=== PATIENT | female | born 1975 | race Caucasian/White ===

== ENCOUNTER 2017-12-18 21:53 | Emergency (ER) | payer MEDICAID ==
[~2017-12-18] VITALS: Ht 193 cm; Wt 81.6 kg
[~2017-12-18 21:53] MED LIST: ALPR1TAB2; LEVO25TA9; PROZAC; ZOLP-158
[2017-12-18] MEDS ORDERED: ACTIVATED CHARCOAL 50 GM/240 ML SOL PO ONE (22:15)
[2017-12-18] MEDS ORDERED: SODIUM CHLORIDE 0.9% 1,000 ML IV ONE (22:30)
[2017-12-18 22:45] LABS: Basophils # (auto) 0.1 uL; Basophils % (auto) 1.1 % (0.0-2.0); Eosinophils # (auto) 0.2 uL; Hematocrit 41.8 % (36.0-46.0); Hemoglobin 13.6 g/dL (12.2-16.2); Lymphocytes # (auto) 4.3 uL; Lymphocytes % (auto) 36.4 % (10.0-50.0); Mean Corpuscular Hemoglobin 27.7 pg (28.0-32.0); Mean Corpuscular Hgb Conc. 32.5 g/dL (32.0-36.0); Mean Corpuscular Volume 85.2 fL (80.0-100.0); Monocytes % (auto) 8.4 % (0.0-12.0); Neutrophils # (auto) 6.1 uL; Neutrophils % (auto) 52.1 % (37.0-80.0); Nucleated Red Blood Cells % 0.1 %; Platelet Count (auto) 396 10^3/uL (140-450); Red Cell Distribution Width 14.3 % (11.8-14.3); White Blood Cell 11.7 10^3/uL (4.4-10.8)
[2017-12-18 23:03] LABS: Albumin 3.6 g/dL (3.4-5.0); BUN/Creatinine Ratio 14.5; Calcium 7.9 mg/dL (8.5-10.1); Potassium 3.6 mmol/L (3.5-5.1)
[2017-12-18 23:06] LABS: Bilirubin, Total 0.1 mg/dL (0.2-1.0); Total Protein 8.1 g/dL (6.4-8.2)
[2017-12-18 23:07] LABS: Acetaminophen 34.8 ug/mL (10-30); Salicylate < 1.7 mg/dL (2.8-20.0)
[2017-12-19 01:30] LABS: Urine Bacteria FEW /hpf (None Seen); Urine Blood TRACE /uL (Negative); Urine Mucus FEW (None Seen); Urine Specific Gravity 1.018 (1.001-1.035); Urine WBC 2 /hpf (0 - 5)
[2017-12-19 01:35] LABS: Amphetamine Screen, Urine NEGATIVE (NEGATIVE); Barbiturate Scree,Urine NEGATIVE (NEGATIVE); Benzodiazephine Screen, Urine NEGATIVE (NEGATIVE); Cannabinoid Screen, Urine NEGATIVE (NEGATIVE); Cocaine Screen, Urine NEGATIVE (NEGATIVE); Opiate Scree,Urine POSITIVE (NEGATIVE); Phencyclidine Screen, Urine NEGATIVE (NEGATIVE)
[2017-12-19] MEDS ORDERED: SODIUM CHLORIDE 0.9% 1,000 ML IV ONE ×2 (05:15)
[2017-12-19] MEDS ORDERED: LORazepam 2MG/ML-1ML VIAL IV ONE (05:15)
[2017-12-19] MEDS: LORazepam 2MG/ML-1ML VIAL IM ONE ×2 (05:20→06:05)
[2017-12-19 06:30] LABS: Albumin 3.7 g/dL (3.4-5.0); BUN/Creatinine Ratio 11.4; Calcium 8.1 mg/dL (8.5-10.1); Potassium 3.7 mmol/L (3.5-5.1)
[2017-12-19 06:33] LABS: Bilirubin, Total 0.2 mg/dL (0.2-1.0); Total Protein 8.3 g/dL (6.4-8.2)
[2017-12-19 06:55] LABS: Acetaminophen < 2.0 ug/mL (10-30); Salicylate < 1.7 mg/dL (2.8-20.0)
[2017-12-19 15:58] VITALS: BP 136/83
== END 2017-12-19 10:57 | disposition short-term general hospital (02) ==
LOC: EDBD 21:53 → ER 21:56
DX: F32.9 Major depressive disorder, single episode, unspecified (principal); F41.9 Anxiety disorder, unspecified; F10.120 Alcohol abuse with intoxication, uncomplicated; F19.10 Other psychoactive substance abuse, uncomplicated; Y90.9 Presence of alcohol in blood, level not specified
CPT/HCPCS: 36415; 71045; 80053; 80307; 80320; 80329; 81001; 85025; 93005; 94761; 96372; 99285; J2060; J7030

== ENCOUNTER 2018-12-08 08:01 | Emergency (ER) | payer MEDICAID ==
[~2018-12-08] VITALS: Ht 170.2 cm; Wt 99.8 kg
[2018-12-08 08:16] VITALS: BP 106/76
[2018-12-08] MEDS ORDERED: KETOROLAC TROMETH 60MG/2ML VIAL IM ONE (09:30)
== END 2018-12-08 10:04 | disposition home or self-care (01) ==
LOC: ER 08:01
DX: R07.81 Pleurodynia (principal); R05 Cough; S22.41XD Multiple fractures of ribs, right side, subsequent encounter for fracture with routine healing; F41.9 Anxiety disorder, unspecified; F32.9 Major depressive disorder, single episode, unspecified
CPT/HCPCS: 71101; 96372; 99283; J1885

== ENCOUNTER 2024-11-17 12:58 | Emergency (ER) | payer MEDICAID ==
[~2024-11-17] VITALS: Ht 170.2 cm; Wt 105.0 kg
[~2024-11-17 12:58] MED LIST changes: -ZOLP-158; +ZOLP5TAB
--- NOTE | 2024-11-17 13:30 | ED.PDOC ---
Psychiatric HPI Comments 49-year-old female who parent at the ED via EMS for a c/c of seizure EMS state patient was shopping at [employer] earlier this afternoon and states after stopping it she was sitting in car and daughter and passenger seat noticed patient had full tonic-clonic seizure lasting approximately 3-5 minute EMS was called this seen at upon arrival noted patient was postictal, alert and oriented x 2 to with noted oral trauma and incontinence EMS notes the patient's vitals are otherwise stable except heart rate was elevated at 144 with a noted Accu-Check 86 EMS also states patient has a heavy drinker states that she drinks 10 drinks daily but states that she had less than not today Patient now in the ED is alert and oriented x3 and otherwise denies any symptoms now in the ED Patient denies history of seizure disorder and denies having used any antiseizure medication in the past Patient in the ED has not noted blood pressure 144/73 heart rate 135 and O2 saturation of 94% on room air patient otherwise denies any other symptoms at this time Patient has no history of seizures in the past. PMHx: Anxiety, depression, asthma Past surgical history: Denies Medications: Unknown Allergies: Denies Social history: Endorses heavy ETOH use, denies drug use, denies tobacco use HPI: Poor Historian. REVIEW OF SYSTEMS: CONSTITUTIONAL: Denies acute: fever, diaphoresis, chills, HEAD: Denies acute: headache, photophobia Eyes: Denies acute: Double vision, vision loss, eye pain, eye discharge. EARS: Denies acute: tinnitus, hearing loss, ear discharge, ear pain, THROAT: Denies acute: sore throat, swelling, difficulty swallowing , pain with swallowing, change in voice. NECK: Denies acute: neck pain, neck swelling, stiff neck. HEART: Denies acute : chest pain, palpitations, LUNGS: Denies acute: SOB, wheezing, cough, hemoptysis ABDOMEN: Denies acute: abdominal pain, Nausea, Vomiting, diarrhea, melena , hematemesis, hematochezia SKIN: Denies acute: rash, redness, lesions, itchiness. EXTREMITIES: Denies acute: calf pain, numbness, tingling, weakness, denies pain in extremity. Denies acute: Low back pain. Neuro: Denies acute: focal neurological deficit, motor or sensory focal neurological deficit, dizziness, change in mental status, : Denies acute: dysuria, hematuria, flank pain, increase in urinary frequency. PSYCH: Denies acute: hallucination, suicidal ideation, homicidal ideation. FEMALE: Denies acute: abnormal vaginal bleeding, foul odor, unusual discharge. PHYSICAL EXAM: General: ----mild----acute distress, awake and alert. Head: normocephalic, atraumatic. Neck: supple, trachea is midline, no swelling. Throat: Normal phonation. Noted right tongue superficial laceration. Eyes:, no erythema, no purulent discharge, no proptosis, no icterus. Heart: regular tachycardic, no significant murmur appreciated. Lungs: no apparent respiratory distress, Able to speak in full sentences. No wheezing, no rhonchi, no crackles. No stridors Clear to auscultation bilaterally. Abdomen: non tender to palpation, non distended, soft, no guarding, no rebound, + bowel sounds. Obese Neuro: Awake, Alert, oriented to name, self, situation, follows commands GCS=15. Speech is normal. Skin: no petechia, no purpura, no cyanosis, non-pale, not jaundice. Lower extremities: --no - Pitting edema no deformity, no focal swelling, no calf TTP. Makes eye contact. moves all four extremities. Face: no apparent facial droop. PERRLA, EOM-I CN 2-12 are grossly intact, No nystagmus. No nuchal rigidity, Kernig's sign, Brudzinski's sign, no meningeal signs. ED COURSE: DISCLAIMER: This medical document was created using an electronic medical record system with voice recognition software and computerized dictation system. Although this document has been carefully reviewed, there might still be some phonetic and typographical errors. Occasional wrong-word or "sound-alike" substitutions may have occurred due to the inherent limitations of voice recognition software. These areas are purely typographical due to imperfections of the software programs and do not reflect any compromise in the patient's medical care. Please read the chart carefully and recognize, using context, where these substitutions have occurred. Chief Complaint: Seizure Time Seen by MD: 13:19 Primary Care Provider: SAMMY Ac Notes: Medications, Allergies Information Source: Patient, Emergency Med Personnel Mode of Arrival: EMS Past Medical History PAST MEDICAL HISTORY: Anxiety, Depression Surgical History: Denies all surgeries GUIDE DOMESTIC TOUR History: No Pertinent GUIDE DOMESTIC TOUR History Family History Family History: Unknown Social History Smoker: Non-Smoker Alcohol: Occasionally Drugs: Denies Drug Use Lives In: Home EKG EKG : Pulse Rate (adult): 121 [place]: Normal Cardiac Rhythm: ST Block: None Hypertrophy: None ST: Normal Was a procedure done? Was a procedure done?: No Psych Differential Dx Intoxication Differential Dx: Alcohol Withdraw Syndrome, Delerium Tremens, Hallucinations, Seizures, Anticholinergic Poisoning, CVA, Dehydration, Depression, Drug-Induced Psychosis, Electrolyte Imbalance, Encephalitis, Encephalopathy, Hepatitis, Hyperthermia, Intoxication, Medical Noncompliance, Personality Disorder, Schizophrenia, Seizure Disorder, Substance Abuse Disorder, Thiamine Deficiency, Thyrotoxicosis Other Differentail Dx As far a seizure. SEIZURE DDX include not limited to CVA, cerebellar ischemia/infarct, carotid stenosis, vertebral/carotid artery dissection,, vertebrobasillary insufficiency, Intracranial mass/infection/bleed, encephalopathy, elctrolyte abnormality, thyroid disease, multiple sclerosis, hypoglycemia, drug toxicity, cardiac arrhythmia, sub-theraputic anti-convulsion medications, known seizure disorder, pseudo-seizure. X-Ray, Labs, Meds, VS Vital Signs Date Time Temp Pulse Resp B/P (MAP) Pulse Ox O2 Delivery O2 Flow Rate FiO2 11/17/24 17:44 97.7 95 23 118/62 (80) 95 97.7 11/17/24 14:07 121 11/17/24 14:06 98.0 114 16 124/68 (86) 95 98.0 11/17/24 14:06 114 15 95 Room Air* 0 21 11/17/24 13:05 97.6 135 16 144/73 94 97.6 11/17/24 13:01 121 Lab Test 11/17/24 17:16 11/17/24 17:01 11/17/24 16:30 11/17/24 14:39 Range/Units Troponin I High Sensitivity 12 7 </=34 ng/L Urine Color Light-yellow Yellow Urine Clarity Clear Clear Urine pH 6.5 5.0-9.0 Urine Specific [place] 1.011 1.001-1.035 Urine Protein Negative Negative Urine Ketones Negative Negative Urine Blood Negative Negative /uL Urine Nitrite Negative Negative Urine Bilirubin Negative Negative Urine Urobilinogen Normal Negative mg/dL Urine Leukocyte Esterase Negative Negative /uL Urine RBC <1 0 - 4 /hpf Urine Microscopic WBC < 1 0-5 /HPF Urine Squamous Epithelial Cells Few <5 /hpf Urine Bacteria Few H None Seen /hpf Urine Glucose Normal Normal mg/dL Lactic Acid Level 1.3 0.4-2.0 mmol/L Test 11/17/24 13:46 Range/Units White Blood Count 11.4 H 4.4-10.8 10^3/uL Red Blood Count 5.22 H 4.0-5.20 10^6/uL Hemoglobin 15.1 12.2-16.2 g/dL Hematocrit 45.3 36.0-46.0 % Mean Corpuscular Volume 86.8 80.0-100.0 fL Mean Corpuscular Hemoglobin 28.9 28.0-32.0 pg Mean Corpuscular Hemoglobin Concent 33.3 32.0-36.0 g/dL Red Cell Distribution Width 14.6 H 11.8-14.3 % Platelet Count 381 140-450 10^3/uL Mean Platelet Volume 6.8 L 6.9-10.8 fL Neutrophils (%) (Auto) 66.2 37.0-80.0 % Lymphocytes (%) (Auto) 23.2 10.0-50.0 % Monocytes (%) (Auto) 8.0 0.0-12.0 % Eosinophils (%) (Auto) 1.7 0.0-7.0 % Basophils (%) (Auto) 0.9 0.0-2.0 % Neutrophils # (Auto) 7.5 1.6-8.6 10 ^3/uL Lymphocytes # (Auto) 2.6 0.4-5.4 10 ^3/uL Monocytes # (Auto) 0.9 0-1.3 10 ^3/uL Eosinophils # (Auto) 0.2 0-0.8 10 ^3/uL Basophils # (Auto) 0.1 0-0.2 10 ^3/uL Nucleated Red Blood Cells 0.1 % Sodium Level 140 136-145 mmol/L Potassium Level 4.0 3.5-5.1 mmol/L Chloride Level 105 98-107 mmol/L Carbon Dioxide Level 23 20-31 mmol/L Anion Gap 12 5-15 Blood Urea Nitrogen 12 9-23 mg/dL Creatinine 0.87 0.550-1.02 mg/dL Glomerular Filtration Rate Calc 83 >90 mL/min BUN/Creatinine Ratio 13.8 10.0-20.0 Serum Glucose 95 74-106 mg/dL Lactic Acid Level 2.3 *H 0.4-2.0 mmol/L Calcium Level 9.3 8.7-10.4 mg/dL Magnesium Level 1.9 1.6-2.6 mg/dL Total Bilirubin 0.4 0.2-1.0 mg/dL Aspartate Amino Transferase (AST) 40 13-40 U/L Alanine Aminotransferase (ALT) 44 H 7-40 U/L Alkaline Phosphatase 103 46-116 U/L Troponin I High Sensitivity < 3 L </=34 ng/L Total Protein 8.0 5.7-8.2 g/dL Albumin 4.5 3.2-4.8 g/dL Plasma/Serum Blood Alcohol 3.1 <10 mg/dL Current Medications Medications (Trade) Dose Ordered Sig/Josesito Route Start Time Stop Time Status Last Admin Sodium Chloride 1,000 ml @ 1,000 mls/hr Q1H ONCE IV 11/17/24 13:30 11/17/24 14:29 DC 11/17/24 14:16 Thiamine HCl 100 mg ONCE ONCE PO 11/17/24 13:30 11/17/24 13:31 DC 11/17/24 14:16 Lorazepam (Ativan Inj) 1 mg ONCE ONCE IV 11/17/24 13:30 11/17/24 13:31 DC 11/17/24 14:16 Lorazepam (Ativan Inj) 1 mg ONCE ONCE IV 11/17/24 14:15 11/17/24 14:29 DC 11/17/24 14:37 Chlordiazepoxide HCl (Librium Capsule) 25 mg ONCE ONCE PO 11/17/24 14:15 11/17/24 14:29 DC 11/17/24 14:36 Sodium Chloride 1,000 ml @ 1,000 mls/hr Q1H ONCE IV 11/17/24 14:45 11/17/24 15:44 DC 11/17/24 16:[address] [address] Ph: [phone] DIAGNOSTIC IMAGING Diagnostic Imaging Report : [id number] Signed PATIENT: CHINMAY HANEY ACCT: [id number] UNIT: [id number] : 1975 LOC: ER ROOM / BED: / AGE / SEX: 49 / F ADM STATUS: REG ER SERVICE 1322 ORDERING PHYSICIAN: FELECIA TAFOYA DO PROCEDURE(s): HWOCT - HEAD WITHOUT CONTRAST REASON: Alcohol withdrawal seizure ORDER NUMBER(s): [id number], ACCESSION NUMBER(s): [id number] Procedure: CT HEAD WITHOUT CONTRAST Study Date and Requested Time: 11/17/2024 01:21 PM History: Alcohol withdrawal seizure Comparison: None Dose: CTDI: 53.17 mGy DLP: 755.91 mGycm Technique: Multiplanar images obtained through the brain without intravenous contrast. Findings: Normal brain volume and formation. 4 mm right periventricular region /gonzalez radiata focus of hypodensity. No hemorrhages, masses, mass effect, midline shift, herniation or cytotoxic edema following a large vascular territory. No intra-axial or extra-axial fluid collections. No evidence of hydrocephalus. The basal cisterns are patent. The pituitary gland, sella and parasellar regions are unremarkable. The cerebellar tonsils are in normal position. The cerebellum is unremarkable. The orbits and globes are unremarkable. The paranasal sinuses and mastoids are clear. There are no worrisome calvarial lesions. Impression: 4 mm hypodense focus over the right periventricular region / gonzalez radiata which may represent lacunar infarct of unknown chronicity versus prominent perivascular space. Otherwise, no evidence for acute intracranial abnormalities. If symptoms persist, consider MRI for further evaluation. ATED BY: RINA POLANCO DO DICTATED DATE/TIME: 11/17/241409 SIGNED BY: RINA POLANCO DO SIGNED DATE/TIME: 11/17/241409 CC: [place] [address] Ph: [phone] DIAGNOSTIC IMAGING Diagnostic Imaging Report : [id number] Signed PATIENT: CHINMAY HANEY ACCT: [id number] UNIT: [id number] : 1975 LOC: ER ROOM / BED: / AGE / SEX: 49 / F ADM STATUS: REG ER SERVICE 1322 ORDERING PHYSICIAN: FELECIA TAFOYA DO PROCEDURE(s): CXRP - CHEST PORTABLE REASON: Alcohol withdrawal seizure ORDER NUMBER(s): [id number], ACCESSION NUMBER(s): [id number] CHEST RADIOGRAPH Indication: Alcohol withdrawal seizure Technique: Single frontal view of the chest was obtained COMPARISON: None FINDINGS: Lines and Tubes: None Lungs: Clear Pleura: No effusion. No pneumothorax. Cardiomediastinal contours: Unremarkable Bones: Unremarkable IMPRESSION: No acute disease. ATED BY: FRANTZ LITTLEJOHN MD DICTATED DATE/TIME: 11/17/241356 SIGNED BY: FRANTZ LITTLEJOHN MD SIGNED DATE/TIME: 11/17/241356 CC: [place] [address] Ph: [phone] DIAGNOSTIC IMAGING Diagnostic Imaging Report : [id number] Signed PATIENT: CHINMAY HANEY ACCT: [id number] UNIT: [id number] : 1975 LOC: ER ROOM / BED: / AGE / SEX: 49 / F ADM STATUS: REG ER SERVICE ORDERING PHYSICIAN: FELECIA TAFOYA DO PROCEDURE(s): HWOCT - HEAD WITHOUT CONTRAST REASON: Alcohol withdrawal seizure ORDER NUMBER(s): [id number], ACCESSION NUMBER(s): [id number] Procedure: CT HEAD WITHOUT CONTRAST Study Date and Requested Time: 11/17/2024 01:21 PM History: Alcohol withdrawal seizure Comparison: None Dose: CTDI: 53.17 mGy DLP: 755.91 mGycm Technique: Multiplanar images obtained through the brain without intravenous contrast. Findings: Normal brain volume and formation. 4 mm right periventricular region /gonzalez radiata focus of hypodensity. No hemorrhages, masses, mass effect, midline shift, herniation or cytotoxic edema following a large vascular territory. No intra-axial or extra-axial fluid collections. No evidence of hydrocephalus. The basal cisterns are patent. The pituitary gland, sella and parasellar regions are unremarkable. The cerebellar tonsils are in normal position. The cerebellum is unremarkable. The orbits and globes are unremarkable. The paranasal sinuses and mastoids are clear. There are no worrisome calvarial lesions. Impression: 4 mm hypodense focus over the right periventricular region / gonzalez radiata which may represent lacunar infarct of unknown chronicity versus prominent perivascular space. Otherwise, no evidence for acute intracranial abnormalities. If symptoms persist, consider MRI for further evaluation. ATED BY: RINA POLANCO DO DICTATED DATE/TIME: 11/17/241409 SIGNED BY: RINA POLANCO DO SIGNED DATE/TIME: 11/17/241409 CC: Time of 1ST Reevaluation: 13:19 Reevaluation 1ST: Unchanged Time of 2ND Reevaluation: 15:51 (The case was discussed with the [facility] admitting team (HPI, physical exam, labs and diagnostic tests that were available at the time of disposition, ED course, treatment plan) on the phone. They agreed to transfer the patient to their service by [facility] for further evaluation and treatment. Dr. metz Authorization number is--[id number]) Reevaluation 2ND: Improved Patient Education/Counseling: Diagnosis, Treatment Family Education/Counseling: No Family Present Comments MDM: patient presented with the above HPI.-alcohol withdrawal seizure-----workup was initiated. patient was found with the above mentioned diagnosis. the following medications were ordered: please refer to order lists of meds and tests obtained by myself Dr. Tafoya. Patient ED course and VS have been stabilized. Patient has been reassessed in the ED and remained in a stable condition. Pertinent incidental findings were discussed with the patient and/or family. Patient/family voices understanding and is agreeable with plan. Patient has been observed in the ED adequate length of time to insure improvement/stability. Escalation of care considered: Consideration of escalation to observation or admission Patient was given fluids, thiamine, Ativan, Librium come Patient was transferred per insurance requirement for further evaluation and treatment of their presentation. All the reports of any imaging studies that were ordered by myself were reviewed by myself. Departure 1 Departure Time of Disposition: 13:29 Impression: Primary Impression: Alcohol withdrawal seizure Disposition: ADMITTED INPATIENT Admit to: Tele Condition: Guarded Discharged With: Self Critical Care Note Critical Care Time?: Yes (1 hr-critical care time only) Heart Score Heart Score: Heart Score Response (Comments) Value History Slightly Suspicious 0 EKG Normal 0 Age 45-64 1 Risk Factors No known risk factors 0 Troponin Normal limit 0 Total 1 I personally scribed for FELECIA TAFOYA DO ([email or web address]) on 11/17/24 at 13:46. Electronically submitted by Sky Hughes ([facility]). I personally scribed for FELECIA TAFOYA DO ([email or web address]) on 11/17/24 at 14:07. Electronically submitted by Sky Hughes ([facility]). I personally scribed for FELECIA TAFOYA DO ([email or web address]) on 11/17/24 at 14:24. Electronically submitted by Sky Hughes ([facility]). I personally scribed for FELECIA TAFOYA DO ([email or web address]) on 11/17/24 at 15:22. Electronically submitted by Adela Smith ([facility]). FELECIA TAFOYA DO Nov 17, 2024 13:30
[2024-11-17 13:56] LABS: Hematocrit 45.3 % (36.0-46.0); Hemoglobin 15.1 g/dL (12.2-16.2); Mean Corpuscular Hemoglobin 28.9 pg (28.0-32.0); Mean Corpuscular Volume 86.8 fL (80.0-100.0); Nucleated Red Blood Cells % 0.1 %
--- NOTE | 2024-11-17 14:00 | DVH ---
CHEST RADIOGRAPH Indication: Alcohol withdrawal seizure Technique: Single frontal view of the chest was obtained COMPARISON: None FINDINGS: Lines and Tubes: None Lungs: Clear Pleura: No effusion. No pneumothorax. Cardiomediastinal contours: Unremarkable Bones: Unremarkable IMPRESSION: No acute disease.
[2024-11-17 14:06] VITALS: PULSE 114; RESP 15; O2SAT 95
[2024-11-17 14:12] LABS: Albumin 4.5 g/dL (3.2-4.8); Alkaline Phosphatase 103 U/L (46-116); Anion Gap 12 (5-15); BUN/Creatinine Ratio 13.8 (10.0-20.0); Blood Urea Nitrogen 12 mg/dL (9-23); Calcium 9.3 mg/dL (8.7-10.4); Carbon Dioxide 23 mmol/L (20-31); Chloride 105 mmol/L (98-107); Glucose 95 mg/dL (74-106); Magnesium 1.9 mg/dL (1.6-2.6); Potassium 4.0 mmol/L (3.5-5.1); Sodium 140 mmol/L (136-145); Total Protein 8.0 g/dL (5.7-8.2)
[2024-11-17 14:13] LABS: Bilirubin, Total 0.4 mg/dL (0.2-1.0)
--- NOTE | 2024-11-17 14:13 | DVH ---
Procedure: CT HEAD WITHOUT CONTRAST Study Date and Requested Time: 11/17/2024 01:21 PM History: Alcohol withdrawal seizure Comparison: None Dose: CTDI: 53.17 mGy DLP: 755.91 mGycm Technique: Multiplanar images obtained through the brain without intravenous contrast. Findings: Normal brain volume and formation. 4 mm right periventricular region /gonzalez radiata focus of hypoden sity. No hemorrhages, masses, mass effect, midline shift, herniation or cytotoxic edema following a large v ascular territory. No intra-axial or extra-axial fluid collections. No evidence of hydrocephalus. The basal cisterns are patent. The pituitary gland, sella and parasellar regions are unremarkable. The cerebellar tonsils are in nor mal position. The cerebellum is unremarkable. The orbits and globes are unremarkable. The paranasal sinuses and mastoids are clear. There are no wo rrisome calvarial lesions. Impression: 4 mm hypodense focus over the right periventricular region / gonzlaez radiata which may represent lacun ar infarct of unknown chronicity versus prominent perivascular space. Otherwise, no evidence for acut e intracranial abnormalities. If symptoms persist, consider MRI for further evaluation.
[2024-11-17] MEDS: THIAMINE HCL 100 MG TAB PO ONE (14:16)
[2024-11-17] MEDS: LORazepam 2MG/ML-1ML VIAL IV ONE ×2 (14:16→14:37)
[2024-11-17] MEDS: SODIUM CHLORIDE 0.9% 1,000 ML IV ONE ×3 (14:16→16:15)
[2024-11-17 14:18] LABS: Lactic Acid w/Reflex 2.3 mmol/L (0.4-2.0)
[2024-11-17 14:20] LABS: Alanine Aminotransferase 44 U/L (7-40)
[2024-11-17 17:06] LABS: Urine Protein, UAD Negative (Negative)
[2024-11-17 17:44] VITALS: BP 118/62; PULSE 95; RESP 23; TEMP 97.7; O2SAT 95
--- NOTE | 2024-11-17 18:11 | ECG ---
[facility] Test Date: 2024-11-17 Test Time: 13:01:33 Pat Name: CHINMAY HANEY Department: [facility] ED Patient ID: [facility]-[id number] Room: Gender: F Electronic Equipment Maint Tech: KANDACE : 1975 Requested By: FELECIA TAFOYA Order Number: [id number] Reading MD: Measurements Intervals [place] Rate: 121 P: 52 IN: 142 QRS: 208 QRSD: 96 T: -2 QT: 326 QTc: 463 Interpretive Statements Sinus tachycardia Right axis deviation Low voltage, precordial leads Consider anterior infarct Borderline T abnormalities, inferior leads Please click the below link to view image of tracing.
== END 2024-11-17 18:06 | disposition short-term general hospital (02) ==
LOC: ER 12:58 → EDBD 12:58 → ER 18:06
DX: R56.9 Unspecified convulsions (principal); F10.129 Alcohol abuse with intoxication, unspecified; F41.9 Anxiety disorder, unspecified; F32.A Depression, unspecified; J45.909 Unspecified asthma, uncomplicated; Y90.9 Presence of alcohol in blood, level not specified
CPT/HCPCS: 36415; 70450; 71045; 80053; 80320; 81001; 83605; 83735; 84484; 85025; 93005; 96361; 96374; 99291; J2060; J7030